=== PATIENT | male | born 1985 | race Caucasian/White ===

== ENCOUNTER 2023-04-11 15:52 | Emergency (ER) | payer OTHER, SELFPAY ==
[2023-04-11 16:00] VITALS: BP 153/99; PULSE 73; RESP 16; TEMP 36.8; O2SAT 100; BMI 26.6
--- NOTE | 2023-04-11 16:04 | DI.RAD.S_ITS ---
PROCEDURE: XR HAND RT MIN 3V INDICATIONS: FOOSH injury TECHNIQUE: 3 views of the hand(s) acquired. COMPARISON: None. FINDINGS: Bones: No fractures or dislocations. Carpal bones are normally aligned. No suspicious bony lesions. Soft tissues: No suspicious soft tissue calcifications. IMPRESSION: No displaced fracture. If there remains a high clinical suspicion, or there is anatomic snuffbox tenderness, consider splinting and repeat radiographs in 10-14 days or cross-sectional imaging. Dictated by: Jaziel Malik M.D. on 04/11/2023 at 17:53 Approved by: Jaziel Malik M.D. on 04/11/2023 at 17:53
[2023-04-11 18:59] VITALS: BP 126/87; PULSE 69; RESP 12; O2SAT 99
--- NOTE | 2023-04-12 14:53 | ED_ITS ---
HPI - Extremity Injury (Upper) <Ralph Moore PA-C - Last Filed: 04/12/23 19:16> General Chief Complaint: Extremity Injury, Upper Stated Complaint: Right hand injury Time Seen by Provider: 04/11/23 18:21 Source: patient Mode of arrival: Ambulatory History of Present Illness HPI narrative: 37-year-old male presents to the ED status post a mechanical fall on outstretched hand. Patient reports swelling and bruising in the thenar eminence of the right hand. Patient endorses that the pain and swelling are improving, was concerned about the bruising. Patient denies numbness, tingling, weakness. Patient endorses good range of motion. Related Data Allergies Allergy/AdvReac Type Severity Reaction Status Date / Time No Known Drug Allergies Allergy Verified 04/11/23 16:00 Review of Systems <Ralph Moore PA-C - Last Filed: 04/12/23 19:16> Constitutional Constitutional: Denies chills, Denies fatigue, Denies fever(s), Denies frequent falls, Denies lethargy and Denies weakness Eyes Eyes: Denies change in vision, Denies eye discharge, Denies irritation and Denies loss of vision ENT Ears, Nose, Mouth, and Throat: Denies change in voice, Denies dizziness, Denies neck pain, Denies sore throat and Denies throat swelling Cardiovascular Cardiovascular: Denies chest pain, Denies irregular heart rhythm, Denies lightheadedness, Denies palpitations, Denies dyspnea, Denies dyspnea on exertion and Denies orthopnea Respiratory Respiratory: Denies cough, Denies dyspnea, Denies dyspnea on exertion and Denies wheezing Gastrointestinal Gastrointestinal: Denies abdominal pain, Denies change in bowel habits, Denies diarrhea, Denies nausea and Denies vomiting Musculoskeletal Musculoskeletal: Denies neck pain and Denies numbness Comments: Right palm injury, bruising Integumentary/Breasts Skin/Breast: Denies pruritus, Denies erythema, Denies rash and Denies wounds Neurologic Neurologic: Denies behavioral changes, Denies confusion, Denies dizziness, Denies frequent falls, Denies loss of vision, Denies numbness and Denies weakness Psychiatric Psychiatric: Denies anxiety, Denies behavioral changes, Denies confusion, Denies depression, Denies homicidal ideation and Denies suicidal ideation Endocrine Endocrine: Denies fatigue, Denies flushing and Denies palpitations Hematologic/Lymphatic Hematologic/Lymphatic: Denies easy bruising Allergic/Immunologic Allergic/Immunologic: Denies urticaria, Denies throat swelling and Denies wheezing Patient History <Ralph Moore PA-C - Last Filed: 04/12/23 19:16> Social History Smoking Status: Never smoker Smoking Status: Never smoker alcohol intake frequency: a few times a week Substance Use Type: does not use Exam <Ralph Moore PA-C - Last Filed: 04/12/23 19:16> Narrative Exam Narrative: Const General:?cooperative, healthy appearing and comfortable HENNV Head:?normal to inspection Ears:?hearing grossly normal bilaterally Nose:?external nose normal Face and sinus:?normal facial exam and sinuses nontender Mouth:?oral mucosae normal Throat:?posterior oropharynx normal Eyes General:?appearance normal, both eyes and all related structures Neck Neck:?normal visual inspection and no lymphadenopathy noted Resp Effort & Inspection:?normal respiratory effort Auscultation:?clear to auscultation bilaterally Cardio Rate:?regular rate Rhythm:?regular rhythm Musculoskeletal There is some swelling and bruising of the thenar eminence of right hand. There is full range of motion. Strength and sensation is intact. Patient is neurovascularly intact. Neuro General:?patient alert, patient awake and patient oriented x3 Initial Vital Signs Initial Vital Signs: Vital Signs Temperature 98.3 F 04/11/23 16:00 Pulse Rate 73 04/11/23 16:00 Respiratory Rate 16 04/11/23 16:00 Blood Pressure 153/99 H 04/11/23 16:00 Pulse Oximetry 100 04/11/23 16:00 Oxygen Delivery Method Room Air 04/11/23 16:00 <Ramonita Fields DO - Last Filed: 04/19/23 22:51> Initial Vital Signs Initial Vital Signs: Vital Signs Temperature 98.3 F 04/11/23 16:00 Pulse Rate 73 04/11/23 16:00 Respiratory Rate 16 04/11/23 16:00 Blood Pressure 153/99 H 04/11/23 16:00 Pulse Oximetry 100 04/11/23 16:00 Oxygen Delivery Method Room Air 04/11/23 16:00 MDM - Extremity Injury (Upper) <Ralph Moore PA-C - Last Filed: 04/12/23 19:16> [facility] [place] Narrative Medical decision making narrative: 37-year-old male presents to the ED status post a mechanical fall on outstretched hand. Concern for musculoskeletal sprain/strain versus fracture/dislocation versus other. X-ray without acute findings. Patient has good range of motion and strength and sensation are intact. There is some bruising from tissue injury, compartments are soft. Recommend ibuprofen for pain. Recommend follow-up with PCP. ED return precautions were discussed with patient. Patient verbalized understanding. Medical records reviewed: Yes Discharge Plan Departure Patient Disposition: Home Clinical Impression: Hand sprain Qualifiers: Encounter type: initial encounter Laterality: right Qualified Code(s): S63.91XA - Sprain of unspecified part of right wrist and hand, initial encounter Instructions: DI for Hand Injury Activity Restrictions/Additional Instructions: You were evaluated in the ED today for a hand injury. Your x-ray did not show any fractures or dislocations. It appears that you have a musculoskeletal sprain/strain in your hand. The discoloration is bruising from the injury and will resolve over the next several days. You may continue to take ibuprofen 600-800 mg 3 times a day with food. You may apply heat packs. Please follow-up with your PCP as soon as possible. Return to the ED if you experience numbness, tingling, weakness. Referrals: Thuan Ahumada MD [Primary Care Provider] - Stand Alone Forms: Patient Portal/API ED Sign-out <Ramonita Fields DO - Last Filed: 04/19/23 22:51> Cosign ED Attending Joseature Attestation: I was immediately available in the department for consultation.
== END 2023-04-11 19:00 | disposition home or self-care (01) ==
PROVIDERS: Emergency Provider Student in an Organized Health Care Education/Training Program; PCP Internal Medicine
DX: S63.91XA Sprain of unspecified part of right wrist and hand, initial encounter (principal); W19.XXXA Unspecified fall, initial encounter
CPT/HCPCS: 73130; 99281; 99283